=== PATIENT | male | born 1980 | race Caucasian/White ===

== ENCOUNTER 2018-07-28 03:54 | Emergency (ER) | payer MEDICAID ==
[~2018-07-28] VITALS: Ht 177.8 cm; Wt 79.4 kg
[2018-07-28 04:00] VITALS: BP 119/80
[2018-07-28] MEDS ORDERED: cefTRIAXone SOD 1,000 MG VL IM ONE (05:15)
== END 2018-07-28 05:09 | disposition home or self-care (01) ==
LOC: ER 03:54
DX: J03.00 Acute streptococcal tonsillitis, unspecified (principal)
CPT/HCPCS: 96372; 99283; J0696